=== PATIENT | female | born 1965 | race Caucasian/White ===

== ENCOUNTER 2017-12-09 11:13 | Emergency (ER) | payer SELFPAY ==
--- NOTE | 2017-12-09 11:42 | EDPHY ---
H & P Stated Complaint: tripped/fell inj r shoulder/denies other inj Time Seen by Provider: 12/09/17 11:28 HPI/ROS: CHIEF COMPLAINT: Right shoulder pain HISTORY OF PRESENT ILLNESS: The patient presents to the ED with complaints of severe right shoulder pain after she tripped and fell onto an outstretched hand earlier today. The patient has a prior history of a grade 4 AC separation. The patient denies any acute numbness or weakness. The patient has moderate to severe pain with any attempted movement. REVIEW OF SYSTEMS: A comprehensive 10 point review of systems is otherwise negative aside from elements mentioned in the history of present illness. Source: Patient Exam Limitations: No limitations - Personal History LMP (Females 10-55): Post Menopausal Current Tetanus/Diphtheria Vaccine: Unsure - Medical/Surgical History Hx Asthma: No Hx Chronic Respiratory Disease: No Hx Diabetes: No Hx Cardiac Disease: No Hx Renal Disease: No Hx Cirrhosis: No Hx Alcoholism: No Hx HIV/AIDS: No Hx Splenectomy or Spleen Trauma: No Other PMH: r ac separation - Social History Smoking Status: Never smoked - Physical Exam Exam: General Appearance: Alert, moderate discomfort secondary to pain Head: Atraumatic Eyes: Pupils equal, round, reactive ENT, Mouth: No hemotympanum, no oral trauma Neck: Nontender, trachea midline Respiratory: No chest wall tender, subcutaneous air, lungs clear bilaterally Cardiovascular: Regular rate and rhythm Abdomen: Abdomen is soft and nontender, pelvis stable Skin: No lacerations, No abrasion Back: No midline T/L/S pain Extremities: Tenderness to palpation over the right humeral head Neurological: A&Ox3, normal motor function, normal sensory exam Constitutional: Initial Vital Signs Temperature (C) 36.4 C 12/09/17 11:16 Heart Rate 77 12/09/17 11:16 Respiratory Rate 18 12/09/17 11:16 Blood Pressure 130/94 H 12/09/17 11:16 O2 Sat (%) 98 12/09/17 11:16 O2 Delivery Mode Room Air Allergies/Adverse Reactions: No Known Allergies Allergy (Unverified 12/09/17 11:15) Home Medications: Medication Instructions Recorded oxyCODONE/APAP 5/325 [Percocet 1 - 2 tab PO Q6-8PRN PRN #20 tab 12/09/17 5/325 (RX)] traMADol [Ultram 50 mg (*)] 50 mg PO Q4 PRN #20 tab 12/09/17 Medical Decision Making - Diagnostics Imaging Results: Right shoulder x-ray: Images reviewed by myself, old grade 4 AC separation, proximal humerus fracture is noted. Impression proximal humerus fracture. ED Course/Re-evaluation: The patient presents to the ED for evaluation of acute right shoulder pain following a mechanical fall. The patient was noted to have a right proximal humerus fracture. It is minimally displaced for may have a rotational component. The patient was placed in a sling. She received IV pain medication for analgesia. The patient was observed in the emergency department and is comfortable going home with oral pain medications. She has been provided a prescription for tramadol. The patient will contact our on-call orthopedic surgeon Dr. Lopez to schedule a follow-up visit with. She is noted to be neurovascularly intact. The patient has been instructed to return to the ED for any severe pain, markedly worsening symptoms or other concerns. Differential Diagnosis: Differential diagnosis considered includes fracture, sprain, dislocation, neurovascular injury - Data Points Medications Given: Discontinued Medications Morphine Sulfate (Morphine) 2 mg IVP EDNOW ONE Stop: 12/09/17 11:44 Last Admin: 12/09/17 11:48 Dose: 2 mg Ondansetron HCl (Zofran) 4 mg IVP EDNOW ONE Stop: 12/09/17 11:45 Last Admin: 12/09/17 11:48 Dose: 4 mg Departure - Departure Disposition: Home, Routine, Self-Care Clinical Impression: Humerus fracture Condition: Good Instructions: Arm Fracture in Adults (ED) Additional Instructions: 1. Please schedule a follow-up appointment with the orthopedic surgeon you have been referred to for further evaluation of your shoulder fracture. 2. Wear sling until seen in follow-up by Orthopedic surgery. 3. Ice as directed. 4. Percocet as needed for pain. 5. Return to the ED for increasing pain, weakness, numbness or other concerns. Referrals: Duncan Lopez MD [Medical Doctor] - As per Instructions Prescriptions: oxyCODONE/APAP 5/325 [Percocet 5/325 (RX)] 1 - 2 tab PO Q6-8PRN PRN #20 tab PRN Reason: for pain traMADol [Ultram 50 mg (*)] 50 mg PO Q4 PRN #20 tab PRN Reason: for pain
[2017-12-09] MEDS ORDERED: ONDANSETRON 4 MG/2 ML VIAL IVP ONE (11:44)
[2017-12-09 12:40] VITALS: BP 132/71; PULSE 69; RESP 16; TEMP 98.4; O2SAT 99
== END 2017-12-09 13:10 | disposition home or self-care (01) ==
DX: S42.201A Unspecified fracture of upper end of right humerus, initial encounter for closed fracture (principal); W01.0XXA Fall on same level from slipping, tripping and stumbling without subsequent striking against object, initial encounter
CPT/HCPCS: 96374; A4565; J2405